=== PATIENT | female | born 1995 ===

== ENCOUNTER 2021-11-18 17:05 | Emergency (ER) | payer OTHER, MEDICAID, SELFPAY ==
--- NOTE | 2021-11-18 17:28 | DI.US.S_ITS ---
PROCEDURE: US ABDOMEN LIMITED INDICATIONS: RUQ pain, family hx gallstones, worsening pain TECHNIQUE: Real-time scanning was performed of the abdominal and retroperitoneal organs, with image documentation. COMPARISON: None. FINDINGS: Liver: Liver is normal in size and homogeneous. Question increased echogenicity. Gallbladder: Within normal limits. 1 mm wall thickness. Biliary ducts: Intrahepatic bile ducts are not dilated. CBD measures 2.5 mm in CHD measures 1.3 mm. Pancreas: Not well seen due to bowel gas. Spleen: Spleen is normal in size and homogeneous in echotexture. IMPRESSION: No gallstones. Biliary tree is within normal limits. Possible mild hepatic steatosis. Dictated by: Nicola Doss M.D. on 11/18/2021 at 18:19 Approved by: Nicola Doss M.D. on 11/18/2021 at 18:22
[2021-11-18 17:29] VITALS: BP 151/103; PULSE 87; RESP 22; O2SAT 100; BMI 30.1
--- NOTE | 2021-11-18 17:34 | ED_ITS ---
HPI - Abdominal Pain <Shayy Gee [facility] - Last Filed: 11/18/21 20:17> General Chief Complaint: Abdominal Pain Stated Complaint: ABD pain post kidney infection Time Seen by Provider: 11/18/21 17:10 History of Present Illness HPI narrative: This is a 26-year-old female who presents to the emergency department today for right upper quadrant pain, abdominal distension, and feeling gassy. Patient states that she has had abdominal complaints for the last 3 or 4 weeks. She has had 4 visits to the [facility] Emergency Department, 2 abdominal [address]s which were negative for any acute abnormality, right upper quadrant ultrasound which showed a contracted gallbladder, and she endorses ongoing abdominal pain since her complicated UTI be few weeks ago. Patient states that she has dull to full allergies, she was treated with ciprofloxacin due to her allergy to ceph alosporins, penicillin, and sulfa and states that her symptoms got better. She states her last menses was 11/08/21, and her has had a vasectomy. Patient denies any abdominal surgeries in the past, states she has PCOS, has an upcoming transvaginal/pelvic ultrasound later this week. She states that she has followed up with her primary care provider about the findings, she states that her only significant abdominal history is an umbilical hernia that was repaired when she was a child, she states that she does not belching and that she can not. She endorses nausea without vomiting, denies any fever, denies any changes to her stool, denies any dysuria, endorses right flank pain with pa lpation, denies any chills, diaphoresis, or dizziness. Patient states that they treated her with Dilaudid and something for her anxiety, and this has been helpful. She states that she took hydrocodone and something for anxiety this morning. Related Data Home Medications Medication Instructions Recorded Confirmed clonazepam 0.5 mg tablet (Klonopin) 0.5 mg PO BID #0 03/31/17 Previous Rx's Medication Instructions Recorded omeprazole 20 mg capsule,delayed 20 mg PO DAILY #30 cap 11/18/21 release sertraline 25 mg tablet 25 mg PO DAILY #30 tab 11/18/21 tramadol 50 mg tablet 50 mg PO DAILY PRN #14 tab 11/18/21 Allergies Allergy/AdvReac Type Severity Reaction Status Date / Time buspirone [From BUSPAR] Allergy Unknown Verified 11/18/21 18:20 Penicillins [PENICILLINS] Allergy Unknown Verified 11/18/21 18:20 Sulfa (Sulfonamide Allergy Unknown Verified 11/18/21 18:20 Antibiotics) [SULFA (SULFONAMIDE ANTIBIOTICS)] amoxicillin Allergy Verified 11/18/21 18:20 Review of Systems <NAHED Mcclain - Last Filed: 11/18/21 20:17> Review of Systems Narrative: General: denies fever, chills, malaise, sweats, fatigue Head/Neck: denies headache, neck pain, dizziness Eyes: denies visual changes, eye pain Cardio: denies chest pain, palpitations, edema Respiratory: denies dyspnea, cough, orthopnea GI: Endorses right upper quadrant pain, abdominal distension, nausea, denies vomiting, constipation, or diarrhea. : denies dysuria, hematuria, urinary retention, frequency or incontinence, denies any abnormal vaginal discharge MSK: denies joint pain, muscle weakness Skin: denies rash, itching, skin lesions or other Neuro: denies numbness, tingling Patient History <NAHED Mcclain - Last Filed: 11/18/21 20:17> Social History Smoking Status: Current every day smoker Exam <NAHED Mcclain - Last Filed: 11/18/21 20:17> Narrative Exam Narrative: Independently reviewed vitals signs and nursing notes. General: cooperative, comfortable, in no acute distress, well developed and well groomed Head: atraumatic, symmetrical facial expressions Neck: supple, atraumatic, without lymphadenopathy. Eyes: pupils equal round and reactive, EOMI, conjunctiva normal Nose: nares patent, no rhinorrhea Mouth/Throat: uvula midline, moist mucus membranes Cardiovascular: regular rate and rhythm, no peripheral edema, warm extremities Respiratory: normal effort, able to speak in complete sentences, no audible wheezing, stridor, or rales. No retractions or tachypnea. GI: abdomen soft, nontender to palpation, nondistended, no masses, no exquisite tenderness with exam, without guarding or rebound. Right CVA tenderness MSK: moves all extremities, ambulatory w/steady gait, neurovascularly intact, no weakness Skin: brisk capillary refill, no rash, no erythema Neuro: normal speech and cognition, A&O x3, normal tone Psych: mental status is grossly normal, congruent mood, normal affect, pleasant and cooperative Initial Vital Signs Initial Vital Signs: Vital Signs Pulse Rate 87 11/18/21 17:29 Respiratory Rate 22 11/18/21 17:29 Blood Pressure 151/103 H 11/18/21 17:29 Pulse Oximetry 100 11/18/21 17:29 <Raudel Sagastume DO - Last Filed: 11/19/21 07:58> Initial Vital Signs Initial Vital Signs: Vital Signs Pulse Rate 87 11/18/21 17:29 Respiratory Rate 22 11/18/21 17:29 Blood Pressure 151/103 H 11/18/21 17:29 Pulse Oximetry 100 11/18/21 17:29 Course <NAHED Mcclain - Last Filed: 11/18/21 20:17> Orders Ordered: Discontinued Medications Ketorolac Tromethamine (Ketorolac 30 Mg/Ml Vial) 15 mg IV NOW ONE Stop: 11/18/21 17:34 Last Admin: 11/18/21 17:41 Dose: 15 mg Documented by: RODRICK Lorazepam (Lorazepam 0.5 Mg Tablet) 1 mg PO NOW ONE Stop: 11/18/21 17:34 Last Admin: 11/18/21 17:41 Dose: 1 mg Documented by: RODRICK Ondansetron HCl (Ondansetron 4 Mg/2 Ml Inj) 4 mg IV NOW ONE Stop: 11/18/21 17:30 Last Admin: 11/18/21 17:41 Dose: 4 mg Documented by: RODRICK Pantoprazole Sodium (Pantoprazole 40 Mg Vial) 20 mg IV NOW ONE Stop: 11/18/21 18:09 Last Admin: 11/18/21 18:24 Dose: 20 mg Documented by: RODRICK Vital Signs Vital signs: Vital Signs - 8 hr 11/18/21 17:29 11/18/21 17:51 11/18/21 18:00 Pulse Rate 87 87 72 Respiratory Rate 22 Blood Pressure 151/103 H 118/56 L Pulse Oximetry 100 99 100 11/18/21 18:30 11/18/21 19:00 Pulse Rate 83 85 Respiratory Rate Blood Pressure 122/77 115/82 Pulse Oximetry 99 99 <Raudel Sagastume DO - Last Filed: 11/19/21 07:58> Orders Ordered: Discontinued Medications Ketorolac Tromethamine (Ketorolac 30 Mg/Ml Vial) 15 mg IV NOW ONE Stop: 11/18/21 17:34 Last Admin: 11/18/21 17:41 Dose: 15 mg Documented by: RODRICK Lorazepam (Lorazepam 0.5 Mg Tablet) 1 mg PO NOW ONE Stop: 11/18/21 17:34 Last Admin: 11/18/21 17:41 Dose: 1 mg Documented by: RODRICK Ondansetron HCl (Ondansetron 4 Mg/2 Ml Inj) 4 mg IV NOW ONE Stop: 11/18/21 17:30 Last Admin: 11/18/21 17:41 Dose: 4 mg Documented by: RODRICK Pantoprazole Sodium (Pantoprazole 40 Mg Vial) 20 mg IV NOW ONE Stop: 11/18/21 18:09 Last Admin: 11/18/21 18:24 Dose: 20 mg Documented by: RODRICK Vital Signs Vital signs: Vital Signs - 8 hr 11/18/21 17:29 11/18/21 17:51 11/18/21 18:00 Pulse Rate 87 87 72 Respiratory Rate 22 Blood Pressure 151/103 H 118/56 L Pulse Oximetry 100 99 100 11/18/21 18:30 11/18/21 19:00 Pulse Rate 83 85 Respiratory Rate Blood Pressure 122/77 115/82 Pulse Oximetry 99 99 MDM - Abdominal Pain <NAHED Mcclain - Last Filed: 11/18/21 20:17> Lab Data Result diagrams: 11/18/21 17:50 11/18/21 17:50 Labs: Lab Results 11/18/21 11/18/21 11/18/21 Range/Units 17:50 17:50 17:50 WBC 7.9 (4.5-11.0) X10^3/uL RBC 4.46 (4.0-5.2) X10^6/uL Hgb 13.7 (12.0-16.0) g/dL Hct 41.1 (36-46) % MCV 92.2 (80-100) fL MCH 30.6 (26-34) PG MCHC 33.2 (30-36) % RDW 12.7 (11.6-14.8) % Plt Count 292 (150-400) X10^3/uL Neut % (Auto) 58.8 (50-75) % Lymph % (Auto) 29.5 (25-40) % M[place]ulloch % (Auto) 5.5 (3-14) % Eos % (Auto) 5.5 H (2-4) % Baso % (Auto) 0.7 (0-2) % Neut # (Auto) 4700 (3837-9094) /uL Lymph # (Auto) 2300 (9428-0455) /uL [place] # (Auto) 400 (0-900) /uL Eos # (Auto) 400 (0-450) /uL Baso # (Auto) 100 (0-100) /uL Sodium 139 (137-145) mmol/L Potassium 3.7 (3.4-5.1) mmol/L Chloride 105 (98-107) mmol/L Carbon Dioxide 28 (22-32) mmol/L BUN 5 L (7-17) mg/dL Creatinine 0.56 (0.52-1.04) mg/dL Estimated GFR > 60 (>60) mL/min BUN/Creatinine Ratio 8.9 (6-22) Glucose 89 (70-100) mg/dL Calcium 9.4 (8.4-10.2) mg/dL Total Bilirubin 0.4 (0.2-1.3) mg/dL AST 25 (14-36) IU/L ALT 19 (<35) IU/L Alkaline Phosphatase 41 (38-126) U/L Total Protein 7.3 (6.3-8.2) g/dL Albumin 4.4 (3.5-5.0) g/dL Globulin 2.9 (1.7-4.1) g/dL Albumin/Globulin Ratio 1.5 (1.0-2.8) Lipase 196 (23-300) U/L Point of care testing: Point of Care Testing Test Results Negative Urine Dip Bedside Urine Glucose Negative Bedside Urine Bilirubin - Negative Bedside Urine Ketone - Negative Urine Specific [place] 1.015 Bedside Urine Occult Blood - Negative Bedside Urine pH 6.5 Bedside Urine Protein - Negative Bedside Urine Urobilinogen - Negative Bedside Urine Nitrite - Negative Bedside Urine Leukocytes - Negative Esterase MDM Narrative Medical decision making narrative: This is a 26-year-old female who presents to the emergency department with right upper quadrant abdominal pain, abdominal distension, and feeling gassy for the last 1 week and worsening. She denies any fever, vomiting, diarrhea, chest pain, shortness of breath, or back pain. She endorses being treated for a UTI with ciprofloxacin about 3 weeks ago, her UTI improved and she has no longer had any symptoms of dysuria or urinary frequency. Her last menses was 11/08/2021, primary care provider is Aye Cantu, and she has an upcoming transvaginal ultrasound scheduled this week. Patient reports having history of PCOS, having two abdominal/pelvis CT scans, and 1 abdominal ultrasound at [facility] emergency department within the last 2 weeks for some of these similar pains. For worsening of these symptoms, states that she has had umbilical hernia surgery repair as a child but no other abdominal surgeries. She states she has a family history of cholelithiasis and cholecystectomies. Patient's lab work was grossly unremarkable, no leukocytosis, no obstructive signs, lipase 196, no electrolyte abnormalities., biliary tree is within normal limits, mild hepatic steatosis, patient already knew about that, CBD measures 2.5 mm, CHD measures 1.3 mm. Patient requests a work note for 1 week. She is given this, discussed her symptoms at length as well as her for ER visits for this same problem without any emergent cause to her complaints and patient states that she used to be on Zoloft, has not been taking since April, she states that she feels anxiety on a daily basis approximately 8/10 and has a constant flow of anxiety. She takes it as needed anxiety medication but no preventative or maintenance antidepressant or anxiety medication. Discussed starting her on her sertraline at a lower dose of 25 mg, she agrees to this, discuss also starting her on omeprazole daily to help suppress gastric acid production due to her anxiety state. In the emergency department she was given Ativan, Toradol, Protonix,She felt much better. UA was negative for infection, red blood cells, white blood cells, nitrites. Discussed close follow-up with primary care, starting on a PPI, her antidepressant, and having close follow-up. Patient understands and will return to the emergency department for any worsening of her symptoms. She was given a work note. No peritoneal signs on abdominal exam. Patient remains p.o. tolerant. Serial abdominal exam without increase in abdominal pain. Given history and exam, low suspicion for acute abdominal process, such as acute cholecystitis, pancreatitis, perforated viscus, atypical appendicitis, colitis, diverticulitis or torsion. Extensive conversation about ER return precautions and need for close follow-up. Patient is appropriate and amenable to discharge home. Vital signs are stable on repeat examination is unremarkable. Patient has been informed of results. Patient has been given strict return to ER precautions for any new or worsening symptoms. Patient understands to follow up closely with outpatient providers as instructed. Patient understands plan and agrees to discharge home. All questions and concerns answered at this time. <Raudel Sagastume DO - Last Filed: 11/19/21 07:58> Lab Data Labs: Lab Results 11/18/21 11/18/21 11/18/21 Range/Units 17:50 17:50 17:50 WBC 7.9 (4.5-11.0) X10^3/uL RBC 4.46 (4.0-5.2) X10^6/uL Hgb 13.7 (12.0-16.0) g/dL Hct 41.1 (36-46) % MCV 92.2 (80-100) fL MCH 30.6 (26-34) PG MCHC 33.2 (30-36) % RDW 12.7 (11.6-14.8) % Plt Count 292 (150-400) X10^3/uL Neut % (Auto) 58.8 (50-75) % Lymph % (Auto) 29.5 (25-40) % [place] % (Auto) 5.5 (3-14) % Eos % (Auto) 5.5 H (2-4) % Baso % (Auto) 0.7 (0-2) % Neut # (Auto) 4700 (4304-3261) /uL Lymph # (Auto) 2300 (6587-3369) /uL [place] # (Auto) 400 (0-900) /uL Eos # (Auto) 400 (0-450) /uL Baso # (Auto) 100 (0-100) /uL Sodium 139 (137-145) mmol/L Potassium 3.7 (3.4-5.1) mmol/L Chloride 105 (98-107) mmol/L Carbon Dioxide 28 (22-32) mmol/L BUN 5 L (7-17) mg/dL Creatinine 0.56 (0.52-1.04) mg/dL Estimated GFR > 60 (>60) mL/min BUN/Creatinine Ratio 8.9 (6-22) Glucose 89 (70-100) mg/dL Calcium 9.4 (8.4-10.2) mg/dL Total Bilirubin 0.4 (0.2-1.3) mg/dL AST 25 (14-36) IU/L ALT 19 (<35) IU/L Alkaline Phosphatase 41 (38-126) U/L Total Protein 7.3 (6.3-8.2) g/dL Albumin 4.4 (3.5-5.0) g/dL Globulin 2.9 (1.7-4.1) g/dL Albumin/Globulin Ratio 1.5 (1.0-2.8) Lipase 196 (23-300) U/L Point of care testing: Point of Care Testing Test Results Negative Urine Dip Bedside Urine Glucose Negative Bedside Urine Bilirubin - Negative Bedside Urine Ketone - Negative Urine Specific [place] 1.015 Bedside Urine Occult Blood - Negative Bedside Urine pH 6.5 Bedside Urine Protein - Negative Bedside Urine Urobilinogen - Negative Bedside Urine Nitrite - Negative Bedside Urine Leukocytes - Negative Esterase Discharge Plan Departure Patient Disposition: Home Clinical Impression: Epigastric abdominal pain, Anxiety Abdominal pain Qualifiers: Abdominal location: right upper quadrant Qualified Code(s): R10.11 - Right upper quadrant pain Instructions: Anxiety Disorders, DI for Gastroesophageal Reflux Disease (GERD), DI for Abdominal Pain-Adult, GERD Diet Activity Restrictions/Additional Instructions: *You have been diagnosed with a state of anxiety, right upper quadrant and epigastric pain without clear cause. Your ultrasound today does not show any problems with her gallbladder, your lab work does not show any problems with your abdominal organs either. Your urine does not have infection, blood, or signs of something else wrong. I have called in sertraline to your pharmacy, I started you on 25 mg which is half the dose used to be on, it may take 1-2 weeks for this to show improvement, please follow-up as soon as possible with your primary care provider. If you have any feelings of depression or suicidality, please come directly to the emergency department for help. Please start taking omeprazole in the morning before any food or other medications, wait 30 minutes at least before food or other medications. Please go to your abdominal ultrasound scheduled, we did not find any emergent causes to your pain today. I am sorry that you continue to have this pain, it could be your ovarian cysts as well which she will find out about on Saturday. Please use your other medications as needed for comfort. I hope that you start feeling better soon, please return to emergency department for any worsening of your symptoms, fever, vomiting, shortness of breath or chest pain. We hope that you feel better soon. *What to do: *Please continue to take your regular medications as directed. [ ] New medication prescriptions sent to your pharmacy: [ ] [ ] New medication written as a paper prescription [ ] No new medications given *Please follow up with your primary care provider in 2-3 days, call for an appointment. Let them know you were seen in the Emergency Department and that we asked that you be seen for follow-up. We will electronically transmit a record of today's note if your PCP is in our system *If you do not have a primary care provider please contact [phone] to establish care with one of [facility] primary care providers. *Return to Emergency Department if you should have any new, worsening or concerning symptoms, such as [fever greater than 101F, chills, worsening pain, persistent vomiting or other bothersome symptoms] Prescriptions: New sertraline 25 mg tablet 25 mg PO DAILY Qty: 30 0RF omeprazole 20 mg capsule,delayed release(DR/EC) 20 mg PO DAILY Qty: 30 0RF tramadol 50 mg tablet 50 mg PO DAILY PRN (Reason: pain) Qty: 14 0RF Discontinued sertraline [Zoloft] 50 MG tablet 50 mg PO QDAY Qty: 0 0RF No Action clonazepam [Klonopin] 0.5 MG tablet 0.5 mg PO BID Qty: 0 0RF Referrals: Aye Cantu PA-C [Non-Staff] - Stand Alone Forms: Work Release Note <Raudel Sagastume DO - Last Filed: 11/19/21 07:58> [facility] Lauraature Attestation: I was immediately available in the department for consultation. This documentation has been reviewed and I agree with assessment and plan. Supervised by Raudel Sagastume DO
[2021-11-18] MEDS: ONDANSETRON 4 MG/2 ML INJ IV (17:41)
[2021-11-18] MEDS: KETOROLAC 30 MG/ML VIAL 15 MG IV (17:41)
[2021-11-18] MEDS: LORazepam 0.5 MG TABLET 1 MG PO (17:41)
[2021-11-18 17:51] VITALS: PULSE 87; O2SAT 99
[2021-11-18 18:00] VITALS: BP 118/56; PULSE 72; O2SAT 100
[2021-11-18 18:09] LABS: Add Manual Diff / Slide Review NO; Basophils Absolute Auto 100 /uL (0-100); Basophils Percent Auto 0.7 % (0-2); Eosinophils Absolute Auto 400 /uL (0-450); Eosinophils Percent Auto 5.5 % (2-4); Hematocrit 41.1 % (36-46); Hemoglobin 13.7 g/dL (12.0-16.0); Lymphocytes Absolute Auto 2300 /uL (1100-4500); Lymphocytes Percent Auto 29.5 % (25-40); Mean Corpuscular HGB Conc 33.2 % (30-36); Mean Corpuscular Hemoglobin 30.6 PG (26-34); Mean Corpuscular Volume 92.2 fL (80-100); Monocytes Absolute Auto 400 /uL (0-900); Monocytes Percent Auto 5.5 % (3-14); Neutrophils Absolute Auto 4700 /uL (1500-7000); Neutrophils Percent Auto 58.8 % (50-75); Platelet Count 292 X10^3/uL (150-400); Red Blood Cell Count 4.46 X10^6/uL (4.0-5.2); Red Cell Distribution Width 12.7 % (11.6-14.8); White Blood Cell Count 7.9 X10^3/uL (4.5-11.0)
[2021-11-18 18:15] LABS: Lipase 196 U/L (23-300)
[2021-11-18] MEDS: PANTOPRAZOLE 40 MG VIAL 20 MG IV (18:24)
[2021-11-18 18:26] LABS: Alanine Aminotransferase 19 IU/L (<35); Albumin 4.4 g/dL (3.5-5.0); Albumin Globulin Ratio 1.5 (1.0-2.8); Alkaline Phosphatase 41 U/L (38-126); Aspartate Aminotransferase 25 IU/L (14-36); BUN Creatinine Ratio 8.9 (6-22); Bilirubin Total 0.4 mg/dL (0.2-1.3); Blood Urea Nitrogen 5 mg/dL (7-17); Calcium 9.4 mg/dL (8.4-10.2); Carbon Dioxide 28 mmol/L (22-32); Chloride 105 mmol/L (98-107); Estimated Glomerular Filt Rate > 60 mL/min (>60); Globulin 2.9 g/dL (1.7-4.1); Glucose 89 mg/dL (70-100); HEMOLYSIS < 15 (0-50); Potassium 3.7 mmol/L (3.4-5.1); Sodium 139 mmol/L (137-145); Total Protein 7.3 g/dL (6.3-8.2)
[2021-11-18 18:30] VITALS: BP 122/77; PULSE 83; O2SAT 99
--- NOTE | 2021-11-18 18:30 | CM.SWNOTE ---
MEDICARE COMPLIANCE AUDITOR Assessment Note MEDICARE COMPLIANCE AUDITOR receives consult and enters room to meet with patient. Patient is 26 y/o female who presents to ED due to concern for Abd pain after kidney infection. Patient has at least 4 ED encounters between [facility] and in the last 4 weeks. In triage patient reports concern for financial insecurities and anxiety due to chronic medical issues. Patient presents as A/Ox4. Patient endorses significant life changes with her and then returning to the household as well as residing with brother in law who is struggling with ETOH use. Patient endorses she is behind on the power bill due to being out of work for two months. Patient endorses that she would like a doctor's not from today's ED visit and her current employer is supportive of patient addressing medical issues. MEDICARE COMPLIANCE AUDITOR provides patient with FMLA information and information to seek utility financial assistance. Patient endorses she has regular f/u with PCP Aye Cantu PA-C Plan: patient to d/c when medically clear and f/u with PCP.
[2021-11-18 19:00] VITALS: BP 115/82; PULSE 85; O2SAT 99
[2021-11-20 16:02] LABS: Hepatitis B Surface Antigen NEGATIVE s/c (NEGATIVE)
[2021-11-20 16:15] LABS: HIV 1 & 2 Ab/Ag 4th Gen Combo NEGATIVE (NEGATIVE); Hep C Virus Ab w/Reflex Quant NEGATIVE s/c (NEGATIVE)
[2021-11-21 07:36] LABS: RPR Screen Non Reactive (Non Reactive)
== END 2021-11-18 19:25 | disposition home or self-care (01) ==
PROVIDERS: Emergency Provider Nurse Practitioner Critical Care Medicine
DX: R10.11 Right upper quadrant pain (principal); R10.13 Epigastric pain; F41.9 Anxiety disorder, unspecified
CPT/HCPCS: 36415; 76705; 80053; 81003; 81025; 83690; 85025; 86592; 86803; 87340; 87389; 96374; 96375; 99284; C9113; J1885; J2405

== ENCOUNTER 2022-07-27 22:08 | Emergency (ER) | payer OTHER, MEDICAID, SELFPAY ==
[2022-07-27 22:26] VITALS: BP 146/90; PULSE 98; RESP 20; TEMP 37.6; O2SAT 97; BMI 27.9
[2022-07-27 22:56] LABS: Add Manual Diff / Slide Review NO; Basophils Absolute Auto 0 /uL (0-100); Basophils Percent Auto 0.3 % (0-2); Eosinophils Absolute Auto 0 /uL (0-450); Eosinophils Percent Auto 0.3 % (2-4); Hematocrit 39.3 % (36-46); Hemoglobin 13.4 g/dL (12.0-16.0); Lymphocytes Absolute Auto 500 /uL (1100-4500); Lymphocytes Percent Auto 9.4 % (25-40); Mean Corpuscular HGB Conc 34.1 % (30-36); Mean Corpuscular Hemoglobin 30.3 PG (26-34); Mean Corpuscular Volume 88.7 fL (80-100); Monocytes Absolute Auto 800 /uL (0-900); Monocytes Percent Auto 14.5 % (3-14); Neutrophils Absolute Auto 4200 /uL (1500-7000); Neutrophils Percent Auto 75.5 % (50-75); Platelet Count 180 X10^3/uL (150-400); Red Blood Cell Count 4.43 X10^6/uL (4.0-5.2); Red Cell Distribution Width 14.6 % (11.6-14.8); White Blood Cell Count 5.6 X10^3/uL (4.5-11.0)
[2022-07-27 23:03] LABS: Alanine Aminotransferase 25 IU/L (<35); Albumin 4.4 g/dL (3.5-5.0); Albumin Globulin Ratio 1.5 (1.0-2.8); Alkaline Phosphatase 39 U/L (38-126); Aspartate Aminotransferase 31 IU/L (14-36); BUN Creatinine Ratio 13.2 (6-22); Bilirubin Total 0.3 mg/dL (0.2-1.3); Blood Urea Nitrogen 9 mg/dL (7-17); Calcium 9.2 mg/dL (8.4-10.2); Carbon Dioxide 26 mmol/L (22-32); Chloride 97 mmol/L (98-107); Estimated Glomerular Filt Rate > 60 mL/min (>60); Globulin 2.9 g/dL (1.7-4.1); Glucose 88 mg/dL (70-100); HEMOLYSIS < 15 (0-50); Potassium 3.9 mmol/L (3.4-5.1); Sodium 132 mmol/L (137-145); Total Protein 7.3 g/dL (6.3-8.2)
[2022-07-27 23:27] LABS: Influenza A - CEPHEID Flu A NEGATIVE (NEGATIVE); Influenza B - CEPHEID Flu B NEGATIVE (NEGATIVE); Respiratory Syncytial Virus Negative (Negative)
[2022-07-27 23:31] LABS: COVID-19 CEPHEID 4-PLEX PCR POSITIVE (Negative)
[2022-07-28 02:43] VITALS: BP 138/68; PULSE 75; O2SAT 100
[2022-07-28 03:00] VITALS: BP 132/70; PULSE 85; O2SAT 99
--- NOTE | 2022-07-28 03:00 | ED_ITS ---
HPI - Fever General Chief Complaint: Fever Stated Complaint: Fever, Lower back/pelvic pain Time Seen by Provider: 07/28/22 02:18 Source: patient Mode of arrival: Ambulatory Limitations: no limitations History of Present Illness HPI Narrative: This is a 27-year-old female with PCOS on metformin daily, reported history of Crohn's but not currently on any medication. Patient states she had fever starting today up to 102 F, she is had little bit of congestion, lower back and pelvic as well as myalgias. Patient states little bit of mild chest discomfort no shortness of breath. No syncope or lightheadedness. No nausea or vomiting. No diarrhea constipation. No dysuria urgency frequency. Patient states she w ould umbilical hernia repair when she was 3. She vapes tobacco. She does drink alcohol. Denies any illicit. Related Data Home Medications Medication Instructions Recorded Confirmed clonazepam 0.5 mg tablet (Klonopin) 0.5 mg PO BID ##0 03/31/17 Previous Rx's Medication Instructions Recorded omeprazole 20 mg capsule,delayed 20 mg PO DAILY #30 caps 11/18/21 release sertraline 25 mg tablet 25 mg PO DAILY anxiety #30 tabs 11/18/21 tramadol 50 mg tablet 50 mg PO DAILY PRN pain #14 tabs 11/18/21 Allergies Allergy/AdvReac Type Severity Reaction Status Date / Time buspirone [From BUSPAR] Allergy Unknown Verified 07/27/22 22:25 Penicillins [PENICILLINS] Allergy Unknown Verified 07/27/22 22:25 Sulfa (Sulfonamide Allergy Unknown Verified 07/27/22 22:25 Antibiotics) [SULFA (SULFONAMIDE ANTIBIOTICS)] amoxicillin Allergy Verified 07/27/22 22:25 Review of Systems Review of Systems ROS Unobtainable: All systems reviewed & are unremarkable except as noted in HPI and below Patient History Social History Smoking Status: Current every day smoker Smoking Status: Current every day smoker tobacco type: vaping alcohol intake frequency: 3 or more drinks per day Alcohol type: hard liquor Substance Use Type: does not use Exam Narrative Exam Narrative: GENERAL: Alert and oriented x three, well-nourished female in mild distress. HEENT: Head normocephalic, atraumatic, EOMI, pupils reactive, face symmetric, moist mucous membranes NECK: Supple, full range of motion CARDIOVASCULAR: Regular rate and rhythm without murmurs, rubs or gallops. RESPIRATORY: Breath sounds equal bilaterally, no wheezes rales or rhonchi. ABDOMEN: Soft, nontender. Normoactive bowel sounds all 4 quadrants. No gua rding or rebound, rigidity, no mass : No CVA tenderness EXTREMITIES: Normal range of motion, no clubbing or edema. Neurovascularly intact NEUROLOGICAL: Cranial nerves II through XII grossly intact. Moving all extremities SKIN: Warm, dry, no petechiae, no rashes or lesions. Initial Vital Signs Initial Vital Signs: Vital Signs Temperature 99.6 F 07/27/22 22:26 Pulse Rate 98 H 07/27/22 22:26 Respiratory Rate 20 07/27/22 22:26 Blood Pressure 146/90 H 07/27/22 22:26 Pulse Oximetry 97 07/27/22 22:26 Oxygen Delivery Method 07/27/22 22:26 Course Orders Ordered: ED Orders 07/27/22 22:42 CMP [Comprehensive Metabolic Panel] Stat Complete Blood Count AUTO DIFF Stat Covid-19 + FLU A/B + RSV - PCR Stat Vital Signs Vital signs: Vital Signs - 8 hr 07/27/22 22:26 Temperature 99.6 F Pulse Rate 98 H Respiratory Rate 20 Blood Pressure 146/90 H Pulse Oximetry 97 Oxygen Delivery Method Room Air MDM - Fever Lab Data Result diagrams: 07/27/22 22:42 07/27/22 22:42 Labs: Lab Results 07/27/22 07/27/22 07/27/22 Range/Units 22:42 22:42 22:42 WBC 5.6 (4.5-11.0) X10^3/uL RBC 4.43 (4.0-5.2) X10^6/uL Hgb 13.4 (12.0-16.0) g/dL Hct 39.3 (36-46) % MCV 88.7 (80-100) fL MCH 30.3 (26-34) PG MCHC 34.1 (30-36) % RDW 14.6 (11.6-14.8) % Plt Count 180 (150-400) X10^3/uL Neut % (Auto) 75.5 H (50-75) % Lymph % (Auto) 9.4 L (25-40) % [place] % (Auto) 14.5 H (3-14) % Eos % (Auto) 0.3 L (2-4) % Baso % (Auto) 0.3 (0-2) % Neut # (Auto) 4200 (4917-3675) /uL Lymph # (Auto) 500 L (1144-3793) /uL [place] # (Auto) 800 (0-900) /uL Eos # (Auto) 0 (0-450) /uL Baso # (Auto) 0 (0-100) /uL Sodium 132 L (137-145) mmol/L Potassium 3.9 (3.4-5.1) mmol/L Chloride 97 L (98-107) mmol/L Carbon Dioxide 26 (22-32) mmol/L BUN 9 (7-17) mg/dL Creatinine 0.68 (0.52-1.04) mg/dL Estimated GFR > 60 (>60) mL/min BUN/Creatinine Ratio 13.2 (6-22) Glucose 88 (70-100) mg/dL Calcium 9.2 (8.4-10.2) mg/dL Total Bilirubin 0.3 (0.2-1.3) mg/dL AST 31 (14-36) IU/L ALT 25 (<35) IU/L Alkaline Phosphatase 39 (38-126) U/L Total Protein 7.3 (6.3-8.2) g/dL Albumin 4.4 (3.5-5.0) g/dL Globulin 2.9 (1.7-4.1) g/dL Albumin/Globulin Ratio 1.5 (1.0-2.8) SARS-CoV-2 (PCR) Positive H (Negative) Influenza A (RT-PCR) Flu a negative (NEGATIVE) Influenza B (RT-PCR) Flu b negative (NEGATIVE) RSV (PCR) Negative (Negative) Point of Care Testing Test Results Negative Urine Dip Bedside Urine Glucose Negative Bedside Urine Bilirubin - Negative Bedside Urine Ketone - Negative Urine Specific [place] 1.015 Bedside Urine Occult Blood - Negative Bedside Urine pH 6.0 Bedside Urine Protein - Negative Bedside Urine Urobilinogen - Negative Bedside Urine Nitrite - Negative Bedside Urine Leukocytes - Negative Esterase MDM Narrative Medical decision making narrative: This is a 27-year-old female who has generalized muscle aches, fever generally feeling unwell. She tested positive for COVID-19 today. She had immunizations 1 or 2 years ago. Patient is on metformin for PCOS. She is otherwise well- appearing normal vitals, patient's labs are overall reassuring. We discussed return precautions. Discharge Plan Departure Patient Disposition: Home Clinical Impression: COVID-19 virus infection Instructions: DI for COVID-19 (Suspected or Confirmed ) Activity Restrictions/Additional Instructions: You have tested positive for COVID infection. You can take Tylenol and/or ibuprofen as needed for fevers. Please return for new chest pain, shortness of breath, passing out, persistent vomiting, black or bloody stools or other new or concerning changes. Prescriptions: No Action clonazepam [Klonopin] 0.5 MG tablet 0.5 mg PO BID Qty: 0 sertraline 25 mg tablet 25 mg PO DAILY Qty: 30 0RF omeprazole 20 mg capsule,delayed release(DR/EC) 20 mg PO DAILY Qty: 30 0RF tramadol 50 mg tablet 50 mg PO DAILY PRN (Reason: pain) Qty: 14 0RF Referrals: *Temp,ED* [Primary Care Provider] - Stand Alone Forms: Patient Portal/API, Work Release Note
[2022-07-28 03:29] VITALS: BP 138/68; PULSE 74; RESP 16; TEMP 37.4; O2SAT 100
== END 2022-07-28 03:30 | disposition home or self-care (01) ==
PROVIDERS: Emergency Provider Emergency Medicine
DX: U07.1 COVID-19 (principal); R07.9 Chest pain, unspecified
CPT/HCPCS: 0241U; 36415; 80053; 81003; 81025; 85025; 99283

== ENCOUNTER 2023-01-09 09:37 | Emergency (ER) | payer OTHER, MEDICAID, SELFPAY ==
[2023-01-09 09:40] VITALS: BP 154/96; PULSE 94; RESP 15; TEMP 36.6; O2SAT 100; BMI 24.7
--- NOTE | 2023-01-09 09:48 | DI.US.S_ITS ---
PROCEDURE: US PELVIC COMPLETE INDICATIONS: ABNORMAL BLEEDING TECHNIQUE: Real-time scanning was performed of the pelvic organs, with image documentation. Additional endovaginal scanning was necessary due to incomplete visualization of the adnexal and endometrial structures by transabdominal scanning. COMPARISON: None. FINDINGS: Uterus: Uterus is retroverted and normal in size at 8.0 x 5.6 x 4.8 cm. The myometrium is heterogeneous. The endometrium measures 9 mm combined thickness. In the junctional zone, there is an ill-defined region with mild posterior shadowing and perceived trace internal cystic change, located at the mid uterine segment. Ovaries: The right ovary measures 4.1 x 2.5 x 2.6 cm, with a calculated ovarian volume of 14 cc. The left ovary measures 6.2 x 2.3 x 2.9 cm, with a calculated ovarian volume of 22 cc. The ovaries have a normal sonographic appearance. Greater than 12 follicles can be seen in each ovary. No adnexal masses are seen. Other: No pathologic free abdominal or pelvic fluid. IMPRESSION: Ill-defined region of heterogeneous attenuation within the junctional zone of the mid uterine segment, with perceived small internal cystic change. Findings suggest focal adenomyosis. Greater than 12 ovaries per follicle, which can be seen in the clinical setting of PCOS. We strive to produce accurate, complete, and clear reports of imaging services. To assist us in improving patient care, this report was composed using standard report templates and voice recognition software. Therefore, it may contain abnormal punctuation, insertions and/or omissions. Occasional wrong-word or sound-alike substitutions may occur. Though we review the report and make efforts to correct it, we do recommend that the report be read carefully in proper context to recognize any text inaccuracies. Dictated by: Chong Pelayo M.D. on 01/09/2023 at 10:40 Approved by: Chong Pelayo M.D. on 01/09/2023 at 10:42
--- NOTE | 2023-01-09 09:48 | ED.GENADULT ---
HPI - General Adult General Chief complaint: Vaginal Bleeding Stated complaint: poss miscarriage Time Seen by Provider: 01/09/23 09:45 Source: patient Mode of arrival: Ambulatory Limitations: no limitations History of Present Illness HPI narrative: Patient is an otherwise healthy 27-year-old female. She is a . Has had 1 prior elective in 1 prior spontaneous . Her most recent was approximately 10 years ago. She is not on control. She stated that yesterday/last evening she started to have very heavy vaginal bleeding and quite a bit of lower abdominal pain. She states this feels different than her menstrual cycle pain. She is 1 week early from her menstrual cycle. She is bleeding through her pads every hour so. No nausea vomiting. No fevers. No urinary symptoms. No change in bowel habits. Related Data Home Medications Medication Instructions Recorded Confirmed clonazepam 0.5 mg tablet (Klonopin) 0.5 mg PO BID ##0 03/31/17 Previous Rx's Medication Instructions Recorded omeprazole 20 mg capsule,delayed 20 mg PO DAILY #30 caps 11/18/21 release sertraline 25 mg tablet 25 mg PO DAILY anxiety #30 tabs 11/18/21 tramadol 50 mg tablet 50 mg PO DAILY PRN pain #14 tabs 11/18/21 Allergies Allergy/AdvReac Type Severity Reaction Status Date / Time buspirone [From BUSPAR] Allergy Unknown Verified 01/09/23 09:48 Penicillins [PENICILLINS] Allergy Unknown Verified 01/09/23 09:48 Sulfa (Sulfonamide Allergy Unknown Verified 01/09/23 09:48 Antibiotics) [SULFA (SULFONAMIDE ANTIBIOTICS)] amoxicillin Allergy Verified 01/09/23 09:48 Review of Systems Constitutional Constitutional: Reports system reviewed and no additional complaints, except as documented Gastrointestinal Gastrointestinal: Reports system reviewed and no additional complaints, except as documented Genitourinary Genitourinary: Reports system reviewed and no additional complaints, except as documented Musculoskeletal Musculoskeletal: Reports system reviewed and no additional complaints, except as documented Integumentary/Breasts Skin/Breast: Reports system reviewed and no additional complaints, except as documented Neurologic Neurologic: Reports system reviewed and no additional complaints, except as documented Hematologic/Lymphatic On Anticoagulants: No Patient History Social History Smoking Status: Current every day smoker Smoking Status: Current every day smoker tobacco type: vaping alcohol intake frequency: 3 or more drinks per day Alcohol type: hard liquor Substance Use Type: does not use Exam Initial Vital Signs Initial Vital Signs: Vital Signs Temperature 97.8 F 01/09/23 09:40 Pulse Rate 94 H 01/09/23 09:40 Respiratory Rate 15 01/09/23 09:40 Blood Pressure 154/96 H 01/09/23 09:40 Pulse Oximetry 100 01/09/23 09:40 Oxygen Delivery Method Room Air 01/09/23 09:40 HENMT Head: normal to inspection and normocephalic Resp Effort & Inspection: normal respiratory effort Auscultation: clear to auscultation bilaterally Cardio Rate: regular rate Rhythm: regular rhythm GI Inspection: normal to inspection and non-distended Palpation: soft and tender (Lower abdomen/adnexa) Skin General: no rashes or lesions noted Neuro General: patient alert, patient awake and moves all extremities Extrem General: capillary refill normal and No edema Course Orders Ordered: ED Orders 01/09/23 09:48 US pelvic complete Stat 01/09/23 09:55 ABO RH Type Stat Basic Metabolic Panel Stat Complete Blood Count AUTO DIFF Stat HCG Quantitative /Beta subunit Stat Vital Signs Vital signs: Vital Signs - 8 hr 01/09/23 09:40 01/09/23 10:48 Temperature 97.8 F Pulse Rate 94 H 75 Respiratory Rate 15 18 Blood Pressure 154/96 H Pulse Oximetry 100 98 Oxygen Delivery Method Room Air Room Air Medical Decision Making Lab Data Lab results reviewed: Yes I reviewed the patient's lab results. 01/09/23 09:55 01/09/23 09:55 Labs: Lab Results 01/09/23 01/09/23 01/09/23 Range/Units 09:55 09:55 09:55 WBC 9.7 (4.5-11.0) X10^3/uL RBC 4.46 (4.0-5.2) X10^6/uL Hgb 13.4 (12.0-16.0) g/dL Hct 40.4 (36-46) % MCV 90.6 (80-100) fL MCH 30.0 (26-34) PG MCHC 33.2 (30-36) % RDW 14.1 (11.6-14.8) % Plt Count 302 (150-400) X10^3/uL Neut % (Auto) 76.8 H (50-75) % Lymph % (Auto) 16.8 L (25-40) % [place] % (Auto) 4.8 (3-14) % Eos % (Auto) 1.3 L (2-4) % Baso % (Auto) 0.3 (0-2) % Neut # (Auto) 7500 H (1652-1131) /uL Lymph # (Auto) 1600 (1747-0057) /uL [place] # (Auto) 500 (0-900) /uL Eos # (Auto) 100 (0-450) /uL Baso # (Auto) 0 (0-100) /uL Sodium 135 L (137-145) mmol/L Potassium 3.6 (3.4-5.1) mmol/L Chloride 100 (98-107) mmol/L Carbon Dioxide 27 (22-32) mmol/L BUN 4 L (7-17) mg/dL Creatinine 0.68 (0.52-1.04) mg/dL Estimated GFR > 60 (>60) mL/min BUN/Creatinine Ratio 5.9 L (6-22) Glucose 123 H (70-100) mg/dL Calcium 8.4 (8.4-10.2) mg/dL HCG, Quant < 2.4 mIU/mL Blood Type A Positive Point of Care Testing Test Results Negative Urine Dip Bedside Urine Glucose Negative Bedside Urine Bilirubin - Negative Bedside Urine Ketone - Negative Urine Specific [place] 1.010 Bedside Urine Occult Blood +++ Bedside Urine pH 6.0 Bedside Urine Protein - Negative Bedside Urine Urobilinogen - Negative Bedside Urine Nitrite - Negative Bedside Urine Leukocytes - Negative Esterase Point of care testing: Point of Care Testing Test Results Negative Urine Dip Bedside Urine Glucose Negative Bedside Urine Bilirubin - Negative Bedside Urine Ketone - Negative Urine Specific [place] 1.010 Bedside Urine Occult Blood +++ Bedside Urine pH 6.0 Bedside Urine Protein - Negative Bedside Urine Urobilinogen - Negative Bedside Urine Nitrite - Negative Bedside Urine Leukocytes - Negative Esterase Imaging Data US - CT MRI TECHNOLOGIST: Radiologist's Impression: PROCEDURE:? US PELVIC COMPLETE ? INDICATIONS:? ABNORMAL BLEEDING ? TECHNIQUE:? Real-time scanning was performed of the pelvic organs, with image documentation.? Additional endovaginal scanning was necessary due to incomplete visualization of the adnexal and endometrial structures by transabdominal scanning.? ? COMPARISON:? None. ? FINDINGS:? ?? Uterus:? Uterus is retroverted and normal in size at 8.0 x 5.6 x 4.8 cm. The myometrium is heterogeneous. ? The endometrium measures 9 mm combined thickness.? In the junctional zone, there is an ill-defined region with mild posterior shadowing and perceived trace internal cystic change, located at the mid uterine segment. ? Ovaries:? The right ovary measures 4.1 x 2.5 x 2.6 cm, with a calculated ovarian volume of 14 cc. The left ovary measures 6.2 x 2.3 x 2.9 cm, with a calculated ovarian volume of 22 cc. The ovaries have a normal sonographic appearance.? Greater than 12 follicles can be seen in each ovary.? No adnexal masses are seen. ? Other:? No pathologic free abdominal or pelvic fluid. ? ? IMPRESSION:? Ill-defined region of heterogeneous attenuation within the junctional zone of the mid uterine segment, with perceived small internal cystic change.? Findings suggest focal adenomyosis. ? Greater than 12 ovaries per follicle, which can be seen in the clinical setting of PCOS.? MDM Narrative Medical decision making narrative: Patient does have a history of PCOS and her ultrasound findings today are consistent with this. She is not . She is greater than 12 cyst on each ovary. I do suspect that this is the cause of her symptoms today. Patient is not anemic. We will hold on starting her on control. She has an appointment already scheduled within the next week with her primary provider which is also her rn obgyn provider. She was given return precautions and follow-up instructions. She expressed understanding and agreement. Discharge Plan Departure Patient Disposition: Home Clinical Impression: Abnormal vaginal bleeding, Adenomyosis Instructions: DI for Vaginal Bleeding Activity Restrictions/Additional Instructions: Recommend that you continue to take all of your medications as directed. I also recommend that you keep your follow-up appointment with your rn obgyn provider that is already scheduled. I would talk with her about potentially starting on control and your options for this. Return to the emergency department for new or worsening symptoms. Prescriptions: No Action clonazepam [Klonopin] 0.5 MG tablet 0.5 mg PO BID Qty: 0 sertraline 25 mg tablet 25 mg PO DAILY Qty: 30 0RF omeprazole 20 mg capsule,delayed release(DR/EC) 20 mg PO DAILY Qty: 30 0RF tramadol 50 mg tablet 50 mg PO DAILY PRN (Reason: pain) Qty: 14 0RF Referrals: Jadyn Patel ARNP [Primary Care Provider] - Stand Alone Forms: Patient Portal/API
[2023-01-09 10:08] LABS: Add Manual Diff / Slide Review NO; Basophils Absolute Auto 0 /uL (0-100); Basophils Percent Auto 0.3 % (0-2); Eosinophils Absolute Auto 100 /uL (0-450); Eosinophils Percent Auto 1.3 % (2-4); Hematocrit 40.4 % (36-46); Hemoglobin 13.4 g/dL (12.0-16.0); Lymphocytes Absolute Auto 1600 /uL (1100-4500); Lymphocytes Percent Auto 16.8 % (25-40); Mean Corpuscular HGB Conc 33.2 % (30-36); Mean Corpuscular Volume 90.6 fL (80-100); Monocytes Absolute Auto 500 /uL (0-900); Monocytes Percent Auto 4.8 % (3-14); Neutrophils Absolute Auto 7500 /uL (1500-7000); Neutrophils Percent Auto 76.8 % (50-75); Platelet Count 302 X10^3/uL (150-400); Red Blood Cell Count 4.46 X10^6/uL (4.0-5.2); Red Cell Distribution Width 14.1 % (11.6-14.8); White Blood Cell Count 9.7 X10^3/uL (4.5-11.0)
[2023-01-09 10:33] LABS: BUN Creatinine Ratio 5.9 (6-22); Blood Urea Nitrogen 4 mg/dL (7-17); Calcium 8.4 mg/dL (8.4-10.2); Carbon Dioxide 27 mmol/L (22-32); Chloride 100 mmol/L (98-107); Estimated Glomerular Filt Rate > 60 mL/min (>60); Glucose 123 mg/dL (70-100); HEMOLYSIS < 15 (0-50); Potassium 3.6 mmol/L (3.4-5.1); Sodium 135 mmol/L (137-145)
[2023-01-09 10:48] VITALS: PULSE 75; RESP 18; O2SAT 98
[2023-01-09 10:49] VITALS: BP 129/80; O2SAT 99
[2023-01-09 10:50] LABS: HCG Quantitative /Beta subunit < 2.4 mIU/mL
== END 2023-01-09 11:14 | disposition home or self-care (01) ==
PROVIDERS: Emergency Provider Emergency Medicine; PCP Registered Nurse
DX: N93.9 Abnormal uterine and vaginal bleeding, unspecified (principal); N80.03 Adenomyosis of the uterus
CPT/HCPCS: 36415; 76830; 76856; 80048; 81003; 81025; 84702; 85025; 86900; 86901; 99284